=== PATIENT | male | born 1955 | race Caucasian/White ===

== ENCOUNTER 2016-08-13 16:48 | Inpatient (IN) | payer OTHER ==
[~2016-08-13] VITALS: Ht 180.3 cm; Wt 117.1 kg
[~2016-08-13 16:48] MED LIST: BENA20 PO; METF500 PO; METH2.5 PO
[2016-08-13 17:09] VITALS: BP 139/73; PULSE 66; RESP 24; TEMP 98.2; O2SAT 93
[2016-08-13] MEDS ORDERED: SODIUM CHLOR 0.9% 1000 ML INJ 1,000 ML IV SCH (17:12)
[2016-08-13] MEDS ORDERED: MORPHINE SULFATE 4 MG/ML INJ IV ONE (17:15)
[2016-08-13] MEDS ORDERED: ONDANSETRON HCL 4 MG/2 ML VIAL IVP ONE (17:15)
[2016-08-13] MEDS ORDERED: SODIUM CHLORIDE 0.9% FLUSH 10 ML FLUSH IVF PRN ×2 (17:15→18:00)
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
[2016-08-13 17:23] VITALS: O2SAT 93
--- NOTE | 2016-08-13 17:58 | RADRPT ---
EXAM DATE/TIME: 08/13/2016 17:46 [facility] COMPARISON: No previous studies available for comparison. INDICATIONS : Chest pain, tightness, and shortness of breath. MEDICAL HISTORY : Hypertension. SURGICAL HISTORY : None. ENCOUNTER: Initial ACUITY: 1 day PAIN SCORE: 5/10 LOCATION: Bilateral chest FINDINGS: Multiple displaced rib fractures are seen on the left. No definite pneumothorax is seen for technique . The lungs are clear without infiltrate, nodule, or mass. There is no appreciable pleural effusion for technique. Heart and mediastinum are unremarkable. CONCLUSION: Multiple displaced rib fractures on the left. Tanja Mittal MD on August 13, 2016 at 17:55 Board Certified Radiologist. This report was verified electronically.
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
[2016-08-13 18:31] LABS: I-STAT POTASSIUM 5.1 MMOL/L (3.5-4.9)
[2016-08-13] MEDS ORDERED: IOHEXOL 350 MG/ML 10 ML VIAL (for RAD DIAG) IV ONE ×2 (18:34)
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
[2016-08-13 18:50] LABS: AUTOMATED NEUTROPHIL # 11.8 TH/MM3 (1.8-7.7); BASOPHIL % 0.2 % (0.0-2.0); EOSINOPHIL # 0.1 TH/MM3 (0-0.4); EOSINOPHIL % 0.8 % (0.0-4.0); HEMATOCRIT 44.3 % (39.0-51.0); HEMO FLAGS DIFF FINAL; LYMPH % 10.5 % (9.0-44.0); LYMPHOCYTE # 1.6 TH/MM3 (1.0-4.8); MEAN CELL VOLUME 93.5 FL (80.0-100.0); MEAN CORPUSCULAR HEMOGLOBIN 32.6 PG (27.0-34.0); MEAN CORPUSCULAR HGB CONC 34.9 % (32.0-36.0); MONO % 9.5 % (0.0-8.0); PLATELET COUNT 144 TH/MM3 (150-450); RED BLOOD COUNT 4.74 MIL/MM3 (4.50-5.90); RED CELL DISTRIBUTION WIDTH 14.6 % (11.6-17.2)
[2016-08-13 18:53] LABS: APTT (PATIENT) 22.3 SEC (24.3-30.1); INTERNATIONAL NORMALIZED RATIO 0.9 RATIO; PROTHROMBIN TIME - PATIENT 10.3 SEC (9.8-11.6)
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
[2016-08-13] MEDS ORDERED: ACETAMINOPHEN/HYDROcodone 325 MG/5 MG TAB PO PRN (19:15)
[2016-08-13] MEDS ORDERED: HYDROmorphone HCL PF 1 MG/ML VIAL IV PUSH ONE (19:15)
[2016-08-13] MEDS ORDERED: ENALAPRILAT 1.25 MG/ML VIAL IV PRN (19:15)
[2016-08-13] MEDS ORDERED: NALOXONE HCL 0.4 MG/ML AMP IV PRN ×2 (19:15→19:45)
[2016-08-13] MEDS ORDERED: MISCELLANEOUS NURSING INFORMATION XX SCH (19:15)
[2016-08-13] MEDS ORDERED: CHLORHEXIDINE GLUCONATE 2 % 1 PACK (2 CLOTHS) TOP PRN (19:15)
[2016-08-13 19:17] LABS: BICARBONATE 22.9 MEQ/L (21.0-32.0)
[2016-08-13 19:18] LABS: POTASSIUM 5.1 MEQ/L (3.5-5.1)
[2016-08-13 19:21] VITALS: BP 160/90; PULSE 90; RESP 16; TEMP 98.5; O2SAT 93
[2016-08-13] MEDS ORDERED: METH2.5T PO ×2 (19:26)
[2016-08-13] MEDS ORDERED: BENA20TA PO (19:26)
[2016-08-13] MEDS ORDERED: METF500T PO (19:26)
[2016-08-13] MEDS: SODIUM CHLOR 0.9% 1000 ML INJ 1,000 ML IV SCH (20:27)
[2016-08-13] MEDS: BACITRACIN TOP OINT 15 GM TUBE TOP SCH (20:28)
[2016-08-13] MEDS: PANTOPRAZOLE SODIUM 40 MG VIAL IVP SCH (20:28)
[2016-08-13] MEDS ORDERED: DOCUSATE SODIUM 100 MG CAP PO SCH (21:00)
[2016-08-13 21:30] VITALS: BP 141/68; PULSE 84; RESP 18; O2SAT 96
[2016-08-13] MEDS: KETOROLAC TROMETHAMINE 30 MG/ML (IVP) VIAL IVP PRN (21:39)
[2016-08-13] MEDS: ACETAMINOPHEN/HYDROcodone 325 MG/5 MG TAB PO PRN (21:40)
[2016-08-13] MEDS: METHOCARBAMOL INJ 1,000 MG in SODIUM CHLOR 0.9% 250 ML INJ 240 ML IV SCH (21:44)
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
[2016-08-13] MEDS ORDERED: PCA - TOTAL MG MORPHINE DELIVERED PER SHIFT SCH (22:00)
[2016-08-13] MEDS: PCA - TOTAL MG MORPHINE DELIVERED PER SHIFT SCH (22:00)
[2016-08-13] MEDS ORDERED: GLUCAGON 1 MG/ML VIAL OTHER PRN (23:00)
[2016-08-13] MEDS ORDERED: DEXTROSE 50% IN WATER 50 ML VIAL(D50) IV PUSH PRN (23:00)
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
[2016-08-13 23:30] VITALS: BP 132/70; PULSE 82; RESP 16; O2SAT 97
[2016-08-14] VITALS (16 sets, daily range): BP systolic 111–163; BP diastolic 64–78; PULSE 56–78; RESP 11–22; TEMP 96.8–98.6; O2SAT 95–99
[2016-08-14] MEDS: ACETAMINOPHEN/HYDROcodone 325 MG/5 MG TAB PO PRN ×3 (01:35→09:21)
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
[2016-08-14] MEDS: CHLORHEXIDINE GLUCONATE 2 % 1 PACK (2 CLOTHS) TOP SCH (04:00)
[2016-08-14] MEDS: KETOROLAC TROMETHAMINE 30 MG/ML (IVP) VIAL IVP PRN (05:36)
[2016-08-14] MEDS: PCA - TOTAL MG MORPHINE DELIVERED PER SHIFT SCH ×3 (06:00→22:00)
[2016-08-14] MEDS: METHOCARBAMOL INJ 1,000 MG in SODIUM CHLOR 0.9% 250 ML INJ 240 ML IV SCH ×3 (06:46→22:19)
[2016-08-14] MEDS ORDERED: RESP: ALBUTEROL 2.5 MG/IPRATROPIUM 0.5 MG NEB (PRN) NEB (08:30)
[2016-08-14] MEDS: INSULIN ASPART SUPPLEMENTAL SCALE SQ SCH ×4 (09:11→22:21)
[2016-08-14] MEDS: SODIUM CHLOR 0.9% 1000 ML INJ 1,000 ML IV SCH ×4 (09:29→22:28)
[2016-08-14 11:06] LABS: HEMATOCRIT 41.6 % (39.0-51.0); MEAN CELL VOLUME 92.7 FL (80.0-100.0); MEAN CORPUSCULAR HEMOGLOBIN 33.4 PG (27.0-34.0); PLATELET COUNT 124 TH/MM3 (150-450); RED BLOOD COUNT 4.49 MIL/MM3 (4.50-5.90); RED CELL DISTRIBUTION WIDTH 14.9 % (11.6-17.2); REVIEW FLAG FINAL; WHITE BLOOD COUNT 8.9 TH/MM3 (4.0-11.0)
[2016-08-14] MEDS: MORPHINE SULFATE 30 MG/30 ML PCA IV SCH ×2 (11:16→17:13)
[2016-08-14 11:30] LABS: ALKALINE PHOSPHATASE 48 U/L (45-117); ALT (GPT) 35 U/L (12-78); ANION GAP 8 MEQ/L (5-15); AST (GOT) 34 U/L (15-37); BICARBONATE 25.9 MEQ/L (21.0-32.0); CHLORIDE 107 MEQ/L (98-107); GLOMERULAR FILTRATION RATE 90 ML/MIN (>89); POTASSIUM 3.8 MEQ/L (3.5-5.1); SODIUM (NA) 141 MEQ/L (136-145); TOTAL BILIRUBIN ADULT 0.6 MG/DL (0.2-1.0)
[2016-08-14 11:33] LABS: BLOOD UREA NITROGEN 11 MG/DL (7-18)
[2016-08-14] MEDS: LACTULOSE SYRUP 20 GM/30 ML CUP PO SCH (11:44)
[2016-08-14] MEDS: DOCUSATE SODIUM 50 MG/SENNA 8.6 MG TAB PO SCH ×2 (11:45→21:00)
[2016-08-14] MEDS: BACITRACIN TOP OINT 15 GM TUBE TOP SCH (11:45)
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
[2016-08-14] MEDS: ACETAMINOPHEN 1000 MG/100 ML VIAL IV SCH ×2 (13:00→18:14)
[2016-08-14] MEDS: ONDANSETRON HCL 4 MG/2 ML VIAL IV PRN (20:15)
[2016-08-14] MEDS: PANTOPRAZOLE SODIUM 40 MG VIAL IVP SCH (20:16)
[2016-08-14 21:13] LABS: HEMATOCRIT 40.1 % (39.0-51.0); REVIEW FLAG FINAL
[2016-08-15] VITALS (7 sets, daily range): BP systolic 125–150; BP diastolic 63–85; PULSE 63–73; RESP 17–18; TEMP 96.8–98.6; O2SAT 93–100
[2016-08-15] MEDS: ACETAMINOPHEN 1000 MG/100 ML VIAL IV SCH ×2 (02:13→06:18)
[2016-08-15] MEDS: CHLORHEXIDINE GLUCONATE 2 % 1 PACK (2 CLOTHS) TOP SCH (03:15)
[2016-08-15] MEDS: ONDANSETRON HCL 4 MG/2 ML VIAL IV PRN (05:22)
[2016-08-15] MEDS: PCA - TOTAL MG MORPHINE DELIVERED PER SHIFT SCH ×3 (05:23→22:00)
[2016-08-15] MEDS: BACITRACIN TOP OINT 15 GM TUBE TOP SCH ×3 (05:24→22:23)
[2016-08-15] MEDS: METHOCARBAMOL INJ 1,000 MG in SODIUM CHLOR 0.9% 250 ML INJ 240 ML IV SCH (05:25)
[2016-08-15 05:54] LABS: AUTOMATED NEUTROPHIL # 6.3 TH/MM3 (1.8-7.7); BASOPHIL % 0.5 % (0.0-2.0); EOSINOPHIL # 0.2 TH/MM3 (0-0.4); EOSINOPHIL % 1.8 % (0.0-4.0); HEMATOCRIT 39.9 % (39.0-51.0); HEMO FLAGS DIFF FINAL; LYMPH % 15.5 % (9.0-44.0); LYMPHOCYTE # 1.4 TH/MM3 (1.0-4.8); MEAN CELL VOLUME 94.9 FL (80.0-100.0); MEAN CORPUSCULAR HEMOGLOBIN 33.2 PG (27.0-34.0); NEUT % 71.2 % (16.0-70.0); PLATELET COUNT 103 TH/MM3 (150-450); RED BLOOD COUNT 4.21 MIL/MM3 (4.50-5.90); RED CELL DISTRIBUTION WIDTH 14.5 % (11.6-17.2); WHITE BLOOD COUNT 8.9 TH/MM3 (4.0-11.0)
[2016-08-15 06:01] LABS: BICARBONATE 25.8 MEQ/L (21.0-32.0); POTASSIUM 3.7 MEQ/L (3.5-5.1)
[2016-08-15] MEDS: INSULIN ASPART SUPPLEMENTAL SCALE SQ SCH ×4 (06:18→22:33)
[2016-08-15] MEDS: MORPHINE SULFATE 30 MG/30 ML PCA IV SCH (06:24)
--- NOTE | 2016-08-15 06:43 | RADRPT ---
EXAM DATE/TIME: 08/15/2016 05:52 [facility] COMPARISON: CHEST SINGLE AP, August 14, 2016, 1:27. INDICATIONS : Shortness of breath, possible pulmonary disease. MEDICAL HISTORY : Hypertension. Diabetes mellitus type II. SURGICAL HISTORY : None. ENCOUNTER: Subsequent ACUITY: 3 days PAIN SCORE: 5/10 LOCATION: Left chest FINDINGS: A single portable frontal view the chest shows low lung volumes. There has been development of an are a consolidation within the retrocardiac left lung base. This is new. Right lung is clear. No effusion s. Heart is at the upper limits of normal in terms of size. CONCLUSION: New left lower lobe consolidation. Alexis Prado Jr., MD on August 15, 2016 at 6:40 Board Certified Radiologist. This report was verified electronically.
[2016-08-15] MEDS: ACETAMINOPHEN/HYDROcodone 325 MG/5 MG TAB PO PRN ×3 (09:16→18:10)
[2016-08-15] MEDS: DOCUSATE SODIUM 50 MG/SENNA 8.6 MG TAB PO SCH ×2 (09:16→22:23)
[2016-08-15] MEDS: SODIUM CHLORIDE 0.9% FLUSH 10 ML FLUSH IV FLUSH PRN ×2 (09:45→22:24)
[2016-08-15] MEDS ORDERED: LISINOPRIL 20 MG TAB PO SCH (12:15)
[2016-08-15] MEDS ORDERED: PILL SPLITTER OTHER PRN (12:15)
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
[2016-08-15] MEDS: METHOCARBAMOL 500 MG TAB PO SCH ×2 (13:13→22:24)
[2016-08-15] MEDS: GABAPENTIN 400 MG CAP PO SCH ×2 (13:13→17:54)
[2016-08-15] MEDS: LIDOCAINE HCL 5% PATCH T-DERMAL SCH (13:17)
[2016-08-15] MEDS: LACTULOSE SYRUP 20 GM/30 ML CUP PO SCH (13:23)
[2016-08-15] MEDS: SODIUM CHLOR 0.9% 1000 ML INJ 1,000 ML IV SCH (21:11)
[2016-08-15] MEDS: PANTOPRAZOLE SODIUM 40 MG VIAL IVP SCH (22:23)
[2016-08-16] VITALS (7 sets, daily range): BP systolic 123–164; BP diastolic 69–83; PULSE 65–83; RESP 16–18; TEMP 96.1–100.1; O2SAT 92–96
[2016-08-16] MEDS: CHLORHEXIDINE GLUCONATE 2 % 1 PACK (2 CLOTHS) TOP SCH (04:00)
[2016-08-16] MEDS: ACETAMINOPHEN/HYDROcodone 325 MG/5 MG TAB PO PRN ×3 (04:32→14:22)
[2016-08-16] MEDS: PCA - TOTAL MG MORPHINE DELIVERED PER SHIFT SCH ×3 (06:00→21:30)
[2016-08-16] MEDS: METHOCARBAMOL 500 MG TAB PO SCH ×3 (06:02→21:29)
[2016-08-16] MEDS: INSULIN ASPART SUPPLEMENTAL SCALE SQ SCH ×4 (06:04→21:39)
[2016-08-16] MEDS: DOCUSATE SODIUM 50 MG/SENNA 8.6 MG TAB PO SCH ×2 (08:52→21:29)
[2016-08-16] MEDS: GABAPENTIN 400 MG CAP PO SCH ×3 (08:52→17:41)
[2016-08-16] MEDS: LISINOPRIL 20 MG TAB PO SCH (08:52)
[2016-08-16] MEDS: LIDOCAINE HCL 5% PATCH T-DERMAL SCH (08:53)
[2016-08-16] MEDS: LACTULOSE SYRUP 20 GM/30 ML CUP PO SCH (08:54)
[2016-08-16] MEDS: BACITRACIN TOP OINT 15 GM TUBE TOP SCH ×2 (08:54→21:31)
[2016-08-16] MEDS: SODIUM CHLOR 0.9% 1000 ML INJ 1,000 ML IV SCH ×2 (09:53→17:11)
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
[2016-08-16] MEDS: MORPHINE SULFATE 30 MG/30 ML PCA IV SCH (11:43)
[2016-08-16] MEDS: ONDANSETRON HCL 4 MG/2 ML VIAL IV PRN (14:25)
[2016-08-17] VITALS (7 sets, daily range): BP systolic 125–145; BP diastolic 64–81; PULSE 66–81; RESP 16–20; TEMP 96.4–98.9; O2SAT 90–96
[2016-08-17] MEDS: MORPHINE SULFATE 30 MG/30 ML PCA IV SCH (03:05)
[2016-08-17] MEDS: PCA - TOTAL MG MORPHINE DELIVERED PER SHIFT SCH (03:06)
[2016-08-17] MEDS: ACETAMINOPHEN/HYDROcodone 325 MG/5 MG TAB PO PRN ×2 (03:09→07:16)
[2016-08-17] MEDS: CHLORHEXIDINE GLUCONATE 2 % 1 PACK (2 CLOTHS) TOP SCH ×2 (04:00→21:22)
[2016-08-17] MEDS: INSULIN ASPART SUPPLEMENTAL SCALE SQ SCH (05:57)
[2016-08-17] MEDS: METHOCARBAMOL 500 MG TAB PO SCH ×3 (05:58→21:22)
[2016-08-17 06:22] LABS: BASOPHIL % 0.4 % (0.0-2.0); EOSINOPHIL # 0.3 TH/MM3 (0-0.4); EOSINOPHIL % 3.8 % (0.0-4.0); HEMATOCRIT 38.7 % (39.0-51.0); HEMO FLAGS DIFF FINAL; LYMPH % 17.7 % (9.0-44.0); LYMPHOCYTE # 1.4 TH/MM3 (1.0-4.8); MEAN CELL VOLUME 93.1 FL (80.0-100.0); MEAN CORPUSCULAR HGB CONC 35.4 % (32.0-36.0); MONO % 14.2 % (0.0-8.0); NEUT % 63.9 % (16.0-70.0); PLATELET COUNT 118 TH/MM3 (150-450); RED BLOOD COUNT 4.16 MIL/MM3 (4.50-5.90); RED CELL DISTRIBUTION WIDTH 14.5 % (11.6-17.2); WHITE BLOOD COUNT 7.9 TH/MM3 (4.0-11.0)
--- NOTE | 2016-08-17 06:27 | RADRPT ---
EXAM DATE/TIME: 08/17/2016 05:12 [place] COMPARISON: CHEST SINGLE AP, August 15, 2016, 5:52. INDICATIONS : Short of breath, pain left ribs MEDICAL HISTORY : Hypertension. Diabetes mellitus type II. SURGICAL HISTORY : None. ENCOUNTER: Subsequent ACUITY: 4 - 6 days PAIN SCORE: 10/10 LOCATION: Left chest FINDINGS: There continues to be an infiltrate in the left lung base. Otherwise, the rest of the lung quintanilla are clear. No new infiltrates are demonstrated.. The heart size is stable compared to the prior study. N o definite pleural effusions. There are multiple left-sided rib fractures. No evidence of pneumothora x. CONCLUSION: Left lower lung infiltrate. No significant change compared to the prior study. Tony Medina MD on August 17, 2016 at 6:25 Board Certified Radiologist. This report was verified electronically.
[2016-08-17 06:46] LABS: ALKALINE PHOSPHATASE 39 U/L (45-117); ALT (GPT) 26 U/L (12-78); ANION GAP 6 MEQ/L (5-15); AST (GOT) 29 U/L (15-37); BICARBONATE 30.1 MEQ/L (21.0-32.0); BLOOD UREA NITROGEN 10 MG/DL (7-18); CHLORIDE 104 MEQ/L (98-107); GLOMERULAR FILTRATION RATE 100 ML/MIN (>89); POTASSIUM 3.4 MEQ/L (3.5-5.1); SODIUM (NA) 140 MEQ/L (136-145); TOTAL BILIRUBIN ADULT 0.6 MG/DL (0.2-1.0)
[2016-08-17] MEDS: LACTULOSE SYRUP 20 GM/30 ML CUP PO SCH (09:00)
[2016-08-17] MEDS ORDERED: MAGNESIUM CITRATE SOLN 300 ML BTL PO ONE (09:00)
[2016-08-17] MEDS ORDERED: POTASSIUM CHLORIDE 20 MEQ CONTROLLED RELEASE TAB PO ONE (09:00)
[2016-08-17] MEDS ORDERED: oxyCODONE/ACETAMINOPHEN 5 MG/325 MG TAB PO PRN (09:30)
[2016-08-17] MEDS: FAMOTIDINE 20 MG TAB PO SCH ×2 (10:25→21:21)
[2016-08-17] MEDS: LISINOPRIL 20 MG TAB PO SCH (10:25)
[2016-08-17] MEDS: DOCUSATE SODIUM 50 MG/SENNA 8.6 MG TAB PO SCH ×2 (10:25→21:21)
[2016-08-17] MEDS: GABAPENTIN 400 MG CAP PO SCH ×3 (10:26→17:25)
[2016-08-17] MEDS: LIDOCAINE HCL 5% PATCH T-DERMAL SCH (10:26)
[2016-08-17] MEDS: metFORMIN HCL 500 MG TAB PO SCH (10:26)
[2016-08-17] MEDS: ONDANSETRON HCL 4 MG/2 ML VIAL IV PRN (10:37)
[2016-08-17] MEDS: BACITRACIN TOP OINT 15 GM TUBE TOP SCH ×2 (10:38→21:23)
[2016-08-17] MEDS ORDERED: HYDROmorphone HCL PF 1 MG/ML VIAL IV PUSH PRN (10:45)
[2016-08-17] MEDS: oxyCODONE/ACETAMINOPHEN 5 MG/325 MG TAB PO PRN ×3 (11:16→21:22)
[2016-08-17] MEDS ORDERED: fentaNYL 25 MCG/HR PATCH T-DERMAL SCH (12:00)
[2016-08-17] MEDS: ENOXAPARIN SODIUM 40 MG/0.4 ML SYRINGE SQ SCH (14:55)
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
[2016-08-18] VITALS (7 sets, daily range): BP systolic 129–155; BP diastolic 69–82; PULSE 57–82; RESP 15–18; TEMP 97.6–98.8; O2SAT 92–97
[2016-08-18] MEDS: oxyCODONE/ACETAMINOPHEN 5 MG/325 MG TAB PO PRN ×3 (05:27→09:21)
[2016-08-18] MEDS: METHOCARBAMOL 500 MG TAB PO SCH ×3 (05:27→22:13)
[2016-08-18] MEDS: LIDOCAINE HCL 5% PATCH T-DERMAL SCH (09:19)
[2016-08-18] MEDS: FAMOTIDINE 20 MG TAB PO SCH ×2 (09:20→22:13)
[2016-08-18] MEDS: DOCUSATE SODIUM 50 MG/SENNA 8.6 MG TAB PO SCH ×2 (09:20→22:14)
[2016-08-18] MEDS: LISINOPRIL 20 MG TAB PO SCH (09:20)
[2016-08-18] MEDS: metFORMIN HCL 500 MG TAB PO SCH (09:20)
[2016-08-18] MEDS: GABAPENTIN 400 MG CAP PO SCH ×3 (09:21→17:52)
[2016-08-18] MEDS: LACTULOSE SYRUP 20 GM/30 ML CUP PO SCH (09:23)
[2016-08-18] MEDS: BACITRACIN TOP OINT 15 GM TUBE TOP SCH ×2 (09:28→21:00)
[2016-08-18] MEDS: SODIUM CHLOR 0.9% 1000 ML INJ 1,000 ML IV SCH (09:34)
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
[2016-08-18] MEDS ORDERED: oxyCODONE/ACETAMINOPHEN 7.5 MG/325 MG TAB PO PRN (12:45)
[2016-08-18] MEDS ORDERED: fentaNYL 50 MCG/HR PATCH T-DERMAL ONE (13:00)
[2016-08-18] MEDS: oxyCODONE/ACETAMINOPHEN 7.5 MG/325 MG TAB PO PRN ×3 (13:11→23:48)
[2016-08-18] MEDS: ENOXAPARIN SODIUM 40 MG/0.4 ML SYRINGE SQ SCH (13:12)
[2016-08-18] MEDS: ARTIFICIAL TEARS OPTH SOLN 15 ML BTL EACH EYE SCH ×2 (17:51→22:15)
[2016-08-18] MEDS: traZODone HCL 50 MG TAB PO SCH (22:14)
[2016-08-19 00:50] VITALS: BP 133/73; PULSE 69; RESP 17; TEMP 96.8; O2SAT 93
[2016-08-19] MEDS: METHOCARBAMOL 500 MG TAB PO SCH ×3 (06:59→22:14)
[2016-08-19 08:00] VITALS: BP 132/80; PULSE 69; RESP 18; TEMP 98.2; O2SAT 93
[2016-08-19] MEDS: metFORMIN HCL 500 MG TAB PO SCH (08:16)
[2016-08-19] MEDS: LISINOPRIL 20 MG TAB PO SCH (08:17)
[2016-08-19] MEDS: DOCUSATE SODIUM 50 MG/SENNA 8.6 MG TAB PO SCH ×2 (08:17→22:15)
[2016-08-19] MEDS: ARTIFICIAL TEARS OPTH SOLN 15 ML BTL EACH EYE SCH ×3 (08:17→18:09)
[2016-08-19] MEDS: GABAPENTIN 400 MG CAP PO SCH ×3 (08:17→18:09)
[2016-08-19] MEDS: FAMOTIDINE 20 MG TAB PO SCH ×2 (08:17→22:15)
[2016-08-19] MEDS: LIDOCAINE HCL 5% PATCH T-DERMAL SCH (08:18)
[2016-08-19] MEDS: BACITRACIN TOP OINT 15 GM TUBE TOP SCH (08:18)
[2016-08-19] MEDS: oxyCODONE/ACETAMINOPHEN 7.5 MG/325 MG TAB PO PRN ×3 (08:19→20:49)
[2016-08-19] MEDS: LACTULOSE SYRUP 20 GM/30 ML CUP PO SCH (08:19)
[2016-08-19 12:00] VITALS: BP 141/84; PULSE 81; RESP 18; TEMP 98.5; O2SAT 93
[2016-08-19] MEDS ORDERED: WALKER WHEELS/F1 MIS (13:43)
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
--- NOTE | 2016-08-19 13:44 | HHI.FF ---
Face to Face Verification Diagnosis: (1) Pneumothorax (2) Splenic laceration (3) Multiple rib fractures involving four or more ribs (4) Pulmonary contusion Physical Therapy Order: Evaluate and Treat, Improve ambulation, Strength and gait training Home Health Nursing Order: Nursing assessment with vital signs I have seen patient Omar Griffiths on 08/19/16. My clinical findings support the need for the requested home health care services because: High risk of falls I certify that my clinical findings support that this patient is homebound because: Unsteady gait/balance Vani Medina [facility] Aug 19, 2016 13:44
[2016-08-19] MEDS: ENOXAPARIN SODIUM 40 MG/0.4 ML SYRINGE SQ SCH (14:21)
[2016-08-19 16:00] VITALS: BP 132/76; PULSE 74; RESP 18; TEMP 99.9; O2SAT 94
[2016-08-19 20:00] VITALS: BP 154/77; PULSE 73; RESP 22; TEMP 98.5; O2SAT 95
[2016-08-19] MEDS: traZODone HCL 50 MG TAB PO SCH (22:15)
[2016-08-20] VITALS: BP 137/68; PULSE 65; RESP 24; TEMP 98.2; O2SAT 97
[2016-08-20] MEDS: oxyCODONE/ACETAMINOPHEN 7.5 MG/325 MG TAB PO PRN ×2 (03:10→08:45)
[2016-08-20 04:00] VITALS: BP 137/68; PULSE 65; RESP 24; TEMP 98.2; O2SAT 97
[2016-08-20] MEDS: METHOCARBAMOL 500 MG TAB PO SCH ×2 (06:56→14:07)
[2016-08-20] MEDS ORDERED: ENOX40P SQ (07:47)
[2016-08-20] MEDS ORDERED: METH500T3 PO (07:47)
[2016-08-20] MEDS ORDERED: TRAZ50TA12 PO (07:47)
[2016-08-20] MEDS ORDERED: SENN1TAB PO (07:47)
[2016-08-20] MEDS ORDERED: LISI-515 PO (07:47)
[2016-08-20] MEDS ORDERED: NEUR400C PO (07:47)
[2016-08-20 08:02] VITALS: BP 123/83; PULSE 70; RESP 16; TEMP 98.5; O2SAT 96
[2016-08-20] MEDS: LIDOCAINE HCL 5% PATCH T-DERMAL SCH (08:43)
[2016-08-20] MEDS: metFORMIN HCL 500 MG TAB PO SCH (08:43)
[2016-08-20] MEDS: FAMOTIDINE 20 MG TAB PO SCH (08:44)
[2016-08-20] MEDS: DOCUSATE SODIUM 50 MG/SENNA 8.6 MG TAB PO SCH (08:44)
[2016-08-20] MEDS: LACTULOSE SYRUP 20 GM/30 ML CUP PO SCH (08:45)
[2016-08-20] MEDS: LISINOPRIL 20 MG TAB PO SCH (08:46)
[2016-08-20] MEDS: GABAPENTIN 400 MG CAP PO SCH ×2 (08:46→14:07)
[2016-08-20] MEDS: BACITRACIN TOP OINT 15 GM TUBE TOP SCH (09:00)
[2016-08-20] MEDS: ARTIFICIAL TEARS OPTH SOLN 15 ML BTL EACH EYE SCH ×2 (09:00→13:00)
[2016-08-20] MEDS ORDERED: FENT50DI T-DERMAL (11:15)
[2016-08-20 11:47] VITALS: BP 145/79; PULSE 75; RESP 16; TEMP 96.3; O2SAT 95
[2016-08-20] MEDS ORDERED: REMOVE OLD DURAGESIC (FENTANYL) PATCH T-DERMAL SCH (12:00)
[2016-08-20] MEDS ORDERED: PERC5TAB12 PO (12:59)
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
[2016-08-20] MEDS: ENOXAPARIN SODIUM 40 MG/0.4 ML SYRINGE SQ SCH (14:07)
== END 2016-08-20 15:04 | DRG 964 ==
LOC: NEPC 16:48 → NEDA 19:10 → NEDH 23:33 → N06A 08-14 16:02
PROVIDERS: ADMIT Surgery; ATTEND Surgery
DX: S27.321A Contusion of lung, unilateral, initial encounter (principal); S22.42XA Multiple fractures of ribs, left side, initial encounter for closed fracture; S36.030A Superficial (capsular) laceration of spleen, initial encounter; S27.0XXA Traumatic pneumothorax, initial encounter; S80.212A Abrasion, left knee, initial encounter; S60.512A Abrasion of left hand, initial encounter; V28.4XXA Motorcycle driver injured in noncollision transport accident in traffic accident, initial encounter; Y92.410 Unspecified street and highway as the place of occurrence of the external cause; G47.30 Sleep apnea, unspecified; E11.9 Type 2 diabetes mellitus without complications; I10 Essential (primary) hypertension; M06.9 Rheumatoid arthritis, unspecified; Z79.84 Long term (current) use of oral hypoglycemic drugs; Z79.899 Other long term (current) drug therapy
CPT/HCPCS: 70450; 71010; 71260; 72125; 72128; 73010; 73030; 74177; 80048; 80053; 82435; 82565; 82947; 82948; 84132; 84295; 84520; 85014; 85018; 85025; 85027; 85610; 85730; 86850; 86900; 86901; 94003; 94150; 94640; 94667; 94668; 96361; 96374; 96375; C9113; J0131; J1170; J1650; J1815; J1885; J2270; J2405; J2800; J7030; J7050; Q9967